=== PATIENT | female | born 2005 | race Caucasian/White ===

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

== ENCOUNTER 2024-02-27 14:48 | Outpatient (CLI) | payer BC, SELFPAY ==
[2024-03-01 09:09] LABS: HBs Antibody, Quant 3.3 mIU/mL (See Note); Hepatitis B Surface Ab Negative (See Note)
[2024-03-01 11:06] LABS: Rubella IgG Ab (UVM) Positive (See Note)
== END 2024-02-27 14:49 | disposition home or self-care (01) ==
LOC: LBO 14:48
PROVIDERS: PCP Nurse Practitioner Family; Visit Provider Nurse Practitioner Family
DX: Z00.00 Encounter for general adult medical examination without abnormal findings (principal)
CPT/HCPCS: 36415; 86706; 86762